=== PATIENT | male | born 2000 | race Caucasian/White ===

== ENCOUNTER 2021-10-14 23:08 | Emergency (ER) | payer OTHER ==
[2021-10-15] MEDS ORDERED: NORFLEX 100 MG100 MG PO (05:43)
[2021-10-15] MEDS ORDERED: MEDROL DOSEPAK 24 MG PO (05:43)
== END 2021-10-15 06:39 | disposition home or self-care (01) ==
LOC: ER1 23:08
DX: G89.29 Other chronic pain (principal); M54.2 Cervicalgia; F17.210 Nicotine dependence, cigarettes, uncomplicated
CPT/HCPCS: 96372; 99283; J1885; J2360; J2930

== ENCOUNTER → 2021-12-05 | Outpatient (CLI) | payer OTHER ==
[~2021-12-05] MED LIST: MEDROL DOSEPAK 24 MG PO; NORFLEX 100 MG100 MG PO
== END ==
LOC: KOH-I 11:31
DX: M54.9 Dorsalgia, unspecified (principal); M19.041 Primary osteoarthritis, right hand
CPT/HCPCS: 72040; 72100; 73130; 73522